=== PATIENT | male | born 1955 | race Two or more races ===

== ENCOUNTER 2020-08-05 13:44 | Inpatient (IN) | payer MEDICARE, OTHER ==
[~2020-08-05] VITALS: Ht 172.7 cm; Wt 74.8 kg
[2020-08-05] MEDS ORDERED: PIPERACILLIN/TAZ 3.375G PREMIX 50 ML IV ONE (14:15)
[2020-08-05] MEDS ORDERED: VANCOMYCIN 1 G PREMIX 200 ML IV ONE (14:15)
[2020-08-05] MEDS ORDERED: SODIUM CHLORIDE 0.9% 1000ML BAG (SEPSIS BOLUS) IV ONE (14:15)
[2020-08-05] MEDS ORDERED: AZITHROMYCIN 500 MG in DEXT 5% WATER 250 ML IV SCH (14:45)
[2020-08-05 15:10] LABS: BASOPHILS % 0.8 % (0.0-2.0); EOSINOPHILS % 0.7 % (0.0-5.0); HEMATOCRIT. 34.4 % (42.0-52.0); HEMOGLOBIN. 11.5 g/dL (14.0-18.0); LYMPHOCYTES % 28.8 % (20.0-50.0); MEAN CORPUSCULAR HEMOGLOBIN 31.5 pg (28.0-32.0); MEAN CORPUSCULAR VOLUME 94.4 fL (80.0-94.0); MEAN PLATELET VOLUME 7.8 fl (7.4-10.4); MONOCYTES % 11.6 % (2.0-8.0); NEUTROPHILS % 58.1 % (40.0-76.0); PLATELET 237 x1000/uL (130-400); RED BLOOD CELL COUNT 3.65 mill/uL (4.7-6.1); RED CELL DISTRIBUTION WIDTH 12.7 % (11.6-14.6)
[2020-08-05 15:12] LABS: CHLORIDE 107 mEq/L (98-107)
[2020-08-05 15:15] LABS: PROTHROMBIN TIME 10.3 sec (9.6-11.0)
[2020-08-05 18:11] LABS: CLARITY URINE CLEAR (CLEAR); COLOR URINE YELLOW (YELLOW); KETONES URINE NEGATIVE (NEGATIVE); LEUKOCYTE ESTERASE URINE NEGATIVE (NEGATIVE); NITRITE URINE NEGATIVE (NEGATIVE); OCCULT BLOOD URINE NEGATIVE (NEGATIVE); PROTEIN URINE NEGATIVE (NEGATIVE); SPECIFIC GRAVITY URINE 1.011 (1.005-1.030)
[2020-08-05 20:00] VITALS: BP 114/69
[2020-08-05 20:04] VITALS: BP 114/69
[2020-08-05] MEDS ORDERED: LORAZEPAM 2MG/ML CPJ IV PRN (22:00)
[2020-08-05] MEDS ORDERED: GUAIFENESIN 200MG/10ML SUGAR FREE UDC PO PRN (22:00)
[2020-08-05] MEDS ORDERED: DIPHENHYDRAMINE 50MG/ML VIAL IV PRN (22:00)
[2020-08-05] MEDS ORDERED: TEMAZEPAM 30MG CAPSULE PO PRN (22:00)
[2020-08-05] MEDS ORDERED: ONDANSETRON HCL 4MG/2ML INJ IV PRN (22:00)
[2020-08-05] MEDS ORDERED: MAGNESIUM/ALUMINUM HYDROXIDE/SIMETHICONE 30ML UDC PO PRN (22:00)
[2020-08-05] MEDS ORDERED: ACETAMINOPHEN 325MG TABLET PO PRN ×2 (22:00)
[2020-08-05] MEDS ORDERED: CLONIDINE 0.1MG TABLET PO PRN (22:00)
[2020-08-05] MEDS ORDERED: TEMAZEPAM 15MG CAPSULE PO PRN (22:07)
[2020-08-05] MEDS: CHLORDIAZEPOXIDE 25MG CAPSULE PO SCH (22:15)
[2020-08-05] MEDS ORDERED: MVI, ADULT NO.1 10 ML, FOLIC ACID 1 MG, THIAMINE HCL 100 MG in SODIUM CHLORIDE 0.9% 1,0... IV NR ×4 (23:00)
[2020-08-06] VITALS: BP 140/74
[2020-08-06 04:20] VITALS: BP 123/63
[2020-08-06] MEDS ORDERED: OMEPRAZOLE 20MG CAPSULE EXTENDED RELEASE PO SCH (06:40)
[2020-08-06 06:42] LABS: BASOPHILS % 0.5 % (0.0-2.0); EOSINOPHILS % 0.7 % (0.0-5.0); HEMATOCRIT. 29.6 % (42.0-52.0); MEAN CORPUSCULAR HEMOGLOBIN 31.6 pg (28.0-32.0); MEAN CORPUSCULAR VOLUME 93.6 fL (80.0-94.0); MEAN PLATELET VOLUME 7.8 fl (7.4-10.4); NEUTROPHILS % 69.8 % (40.0-76.0); PLATELET 213 x1000/uL (130-400); RED BLOOD CELL COUNT 3.16 mill/uL (4.7-6.1); RED CELL DISTRIBUTION WIDTH 12.6 % (11.6-14.6)
[2020-08-06] MEDS: CHLORDIAZEPOXIDE 25MG CAPSULE PO SCH ×2 (06:47→13:17)
[2020-08-06 07:11] LABS: CHLORIDE 112 mEq/L (98-107)
[2020-08-06 07:16] LABS: PHOSPHORUS 3.5 mg/dL (2.5-4.9)
[2020-08-06 08:00] VITALS: BP 131/77
[2020-08-06] MEDS ORDERED: SODIUM CHLORIDE 0.9% 1,000 ML IV SCH (08:00)
[2020-08-06] MEDS ORDERED: TAMSULOSIN HCL 0.4MG SR CAPSULE PO SCH (09:00)
[2020-08-06 12:00] VITALS: BP 130/73
[2020-08-06 16:00] VITALS: BP 128/76
[2020-08-06 17:58] VITALS: BP 130/73
== END 2020-08-06 18:55 | disposition home or self-care (01) | DRG 74 ==
LOC: ER 13:44 → 7EST 15:10 → EDBEDREQ 15:37 → EDBEDREQSVC 15:37 → ENRESERV 17:32 → 8WST 23:50
PROVIDERS: ADMIT Internal Medicine; ATTEND Internal Medicine
DX: G90.8 Other disorders of autonomic nervous system (principal); I95.9 Hypotension, unspecified; F32.9 Major depressive disorder, single episode, unspecified; I10 Essential (primary) hypertension; N40.0 Benign prostatic hyperplasia without lower urinary tract symptoms; M19.90 Unspecified osteoarthritis, unspecified site; Z20.828 Contact with and (suspected) exposure to other viral communicable diseases; F10.10 Alcohol abuse, uncomplicated; Z79.899 Other long term (current) drug therapy; Z87.891 Personal history of nicotine dependence; Z82.49 Family history of ischemic heart disease and other diseases of the circulatory system; Z83.3 Family history of diabetes mellitus
CPT/HCPCS: 36415; 71045; 80053; 81003; 83605; 83735; 84100; 84145; 84484; 85025; 93005; 96365; 99291; J0456; J2543; J3370; J3411; J3490; J7030; J7060; U0003

== ENCOUNTER 2021-07-02 15:56 | Emergency (ER) | payer MEDICARE ==
[~2021-07-02] VITALS: Ht 175.3 cm; Wt 82.0 kg
[2021-07-02 17:41] LABS: BASOPHILS % 0.3 % (0.0-2.0); EOSINOPHILS % 0.1 % (0.0-5.0); HEMATOCRIT. 33.1 % (42.0-52.0); HEMOGLOBIN. 11.1 g/dL (14.0-18.0); LYMPHOCYTES % 23.8 % (20.0-50.0); MEAN CORPUSCULAR HEMOGLOBIN 30.4 pg (28.0-32.0); MEAN CORPUSCULAR VOLUME 90.6 fL (80.0-94.0); MEAN PLATELET VOLUME 7.3 fl (7.4-10.4); MONOCYTES % 8.2 % (2.0-8.0); NEUTROPHILS % 67.6 % (40.0-76.0); PLATELET 185 x1000/uL (130-400); RED BLOOD CELL COUNT 3.65 mill/uL (4.7-6.1); RED CELL DISTRIBUTION WIDTH 14.2 % (11.6-14.6)
[2021-07-02 17:49] LABS: CHLORIDE 108 mEq/L (98-107)
[2021-07-02 18:05] LABS: ETHANOL BLOOD 431 mg/dL
[2021-07-03 00:28] VITALS: BP 132/61
== END 2021-07-03 00:53 | disposition home or self-care (01) ==
LOC: ER 15:56
DX: G92 Toxic encephalopathy (principal); T51.0X1A Toxic effect of ethanol, accidental (unintentional), initial encounter; Y92.89 Other specified places as the place of occurrence of the external cause; I10 Essential (primary) hypertension; F12.10 Cannabis abuse, uncomplicated
CPT/HCPCS: 36415; 80053; 80320; 85025; 99285; G0480

== ENCOUNTER 2023-11-25 13:44 | Emergency (ER) | payer MEDICARE ==
[~2023-11-25] VITALS: Ht 175.3 cm; Wt 72.0 kg
[2023-11-25 13:46] VITALS: TEMP 98; O2SAT 97
[2023-11-25 14:43] LABS: BASOPHILS % 0.6 % (0.0-2.0); EOSINOPHILS % 0.9 % (0.0-5.0); HEMATOCRIT. 37.8 % (42.0-52.0); HEMOGLOBIN. 12.5 g/dL (14.0-18.0); LYMPHOCYTES % 18.8 % (20.0-50.0); MEAN CORPUSCULAR HEMOGLOBIN 31.3 pg (28.0-32.0); MEAN CORPUSCULAR HGB CONC 33.1 g/dL (31.0-37.0); MEAN CORPUSCULAR VOLUME 94.5 fL (80.0-94.0); MEAN PLATELET VOLUME 6.9 fl (7.4-10.4); MONOCYTES % 9.8 % (2.0-8.0); NEUTROPHILS % 69.9 % (40.0-76.0); PLATELET 269 x1000/uL (130-400); RED CELL DISTRIBUTION WIDTH 13.3 % (11.6-14.6)
[2023-11-25] MEDS: SODIUM CHLORIDE 0.9% 1,000 ML IV ONE (14:47)
[2023-11-25 14:48] LABS: INR 0.9; PROTHROMBIN TIME 10.5 sec (9.6-11.0)
[2023-11-25 15:01] LABS: ALANINE AMINOTRANSFERASE 14 IU/L (10-49); ASPARTATE AMINOTRANSFERASE 63 IU/L (<34); BILIRUBIN TOTAL 0.3 mg/dL (0.1-1.0); CALCIUM 8.8 mg/dL (8.7-10.4); CARBON DIOXIDE 23 mEq/L (21-32); CHLORIDE 107 mEq/L (98-107); CREATININE 0.7 mg/dL (0.6-1.3); ETHANOL BLOOD 309 mg/dL (<10); GLUCOSE 74 mg/dL (70-105); PHOSPHORUS 2.3 mg/dL (2.5-4.9); POTASSIUM 3.8 mEq/L (3.5-5.1); PROTEIN TOTAL 7.2 g/dL (6.0-8.3); SODIUM 143 mEq/L (136-145); UREA NITROGEN BLOOD 6 mg/dL (9-23)
[2023-11-25 18:12] VITALS: BP 139/81; PULSE 78; RESP 12
== END 2023-11-25 18:19 | disposition home or self-care (01) ==
LOC: ER 13:44
DX: F10.229 Alcohol dependence with intoxication, unspecified (principal); F32.9 Major depressive disorder, single episode, unspecified; I10 Essential (primary) hypertension; F12.10 Cannabis abuse, uncomplicated; Y90.8 Blood alcohol level of 240 mg/100 ml or more
CPT/HCPCS: 80053; 80320; 83690; 83735; 84100; 85025; 85610; 36415; 93005; 99283; J7030; 99284; G0480